=== PATIENT | male | born 1995 | race Caucasian/White ===

== ENCOUNTER 2023-03-24 01:59 | Inpatient (IN) | payer BC, OTHER ==
[~2023-03-24] VITALS: Ht 177.8 cm; Wt 83.7 kg
[2023-03-24 02:52] LABS: BASOPHILS % (AUTO) 0.7 % (0.0-5.0); EOSINOPHILS % (AUTO) 3.7 % (0.0-8.0); HEMATOCRIT 38.3 % (42-54); LYMPHOCYTES % (AUTO) 31.2 % (21.0-51.0); MEAN CORPUSCULAR HEMOGLOBIN 30.4 pg (27.0-33.0); MEAN CORPUSCULAR HGB CONC 33.9 g/dL (32.0-36.0); MEAN CORPUSCULAR VOLUME 89.7 fL (79-99); MONOCYTES % (AUTO) 12.3 % (3.0-13.0); NEUTROPHILS % (AUTO) 51.8 % (40.0-77.0); PLATELET COUNT (AUTO) 478 K/uL (130-400); RED BLOOD CELL COUNT(AUTO) 4.27 MIL/uL (4.50-6.20); RED CELL DISTRIBUTION WIDTH 13.4 % (11.0-15.5); WHITE BLOOD COUNT (AUTO) 9.4 K/uL (4.8-10.8)
[2023-03-24 02:59] LABS: CARBON DIOXIDE 29 mmol/L (21-32); CHLORIDE 102 mmol/L (101-111); CREATININE 0.9 mg/dL (0.5-1.5); GLOMERULAR FILTR. RATE CALC 120 mL/min (>90); GLUCOSE,RANDOM 142 mg/dL (70-105); POTASSIUM 3.6 mmol/L (3.5-5.1); SODIUM SERUM 141 mmol/L (136-145); UREA NITROGEN, BLOOD 11 mg/dL (7-18)
[2023-03-24] MEDS ORDERED: ACETYLCYSTEINE IV ONE ×6 (03:00→08:00)
[2023-03-24] MEDS ORDERED: DEXTROSE 5% IV ONE ×6 (03:00→08:00)
[2023-03-24] MEDS ORDERED: PHARMACY COMMUNICATION MISC SCH ×2 (03:00→17:00)
[2023-03-24] MEDS ORDERED: WATER IV ONE ×6 (03:00→08:00)
[2023-03-24 03:10] LABS: ALANINE AMINOTRANSFERASE 435 U/L (12-78); ALBUMIN 3.7 g/dL (3.5-5.0); ASPARTATE AMINOTRANSFERASE 33 U/L (10-37); CREATINE KINASE, TOTAL 79 U/L (21-232); TOTAL PROTEIN, SERUM 7.5 g/dL (6.0-8.3)
[2023-03-24 03:11] LABS: SALICYLATE < 2.8 mg/dL (2.8-20.0)
[2023-03-24] MEDS ORDERED: ACETYLCYSTEINE 20% 200MG/ML 30ML VIAL ONE ×2 (03:11)
[2023-03-24 03:21] LABS: ACETAMINOPHEN 225 mcg/mL (10-29)
[2023-03-24] MEDS: CHARCOAL/SORBITOL 50 GM/240 ML SUSP PO SCH (03:49)
[2023-03-24 05:37] LABS: AMPHET/METH SCREEN,URINE NEGATIVE (NEGATIVE); BARBITURATE SCREEN, URINE NEGATIVE (NEGATIVE); BENZODIAZEPINES SCREEN,URINE POSITIVE (NEGATIVE); CANNABINOID SCREEN,URINE POSITIVE (NEGATIVE); COCAINE SCREEN,URINE NEGATIVE (NEGATIVE); OPIATE SCREEN,URINE NEGATIVE (NEGATIVE); PHENCYCLIDINE SCREEN,URINE NEGATIVE (NEGATIVE)
[2023-03-24 05:42] LABS: APPEARANCE,URINE CLEAR (CLEAR); BILIRUBIN,URINE NEGATIVE (NEGATIVE); COLOR,URINE YELLOW (YELLOW); GLUCOSE, URINE (UA) 50 mg/dL (NEGATIVE); KETONES,URINE 150 mg/dL (NEGATIVE); LEUKOCYTE ESTERASE ,URINE NEGATIVE Leu/uL (NEGATIVE); NITRATE,URINE NEGATIVE (NEGATIVE); OCCULT BLOOD,URINE NEGATIVE (NEGATIVE); PROTEIN,URINE 20 mg/dL (NEGATIVE); UROBILINOGEN,URINE 0.2 mg/dL (0.2-1.0)
[2023-03-24 08:00] VITALS: BP 115/91
[2023-03-24] MEDS ORDERED: ONDANSETRON 4MG INJ IV PRN (08:00)
[2023-03-24] MEDS ORDERED: ACETAMINOPHEN 325 MG TAB PO PRN ×2 (08:00)
[2023-03-24] MEDS: FAMOTIDINE 20MG VIAL IV SCH ×2 (09:00→19:51)
[2023-03-24 12:20] VITALS: BP 123/84
[2023-03-24] MEDS: LORAZEPAM 2 MG/ML 1 ML VIAL IVP PRN ×2 (12:25→19:51)
[2023-03-24 12:48] LABS: ALBUMIN 3.3 g/dL (3.5-5.0); BILIRUBIN,DIRECT 0.1 mg/dL (0.0-0.3); TOTAL PROTEIN, SERUM 7.2 g/dL (6.0-8.3)
[2023-03-24 15:51] VITALS: BP 128/86
[2023-03-24] MEDS ORDERED: OLAN7.5T2 PO (16:31)
[2023-03-24] MEDS ORDERED: FLUO10CA21 PO (16:31)
[2023-03-24] MEDS ORDERED: BUPR-72 PO (16:31)
[2023-03-24] MEDS ORDERED: GABA-529 PO (16:31)
[2023-03-24] MEDS ORDERED: PAROXETINE HCL 20 MG TABLET PO SCH (17:00)
[2023-03-24] MEDS: PAROXETINE HCL 20 MG TABLET PO SCH (17:25)
[2023-03-24 18:07] LABS: ALBUMIN 3.4 g/dL (3.5-5.0); BILIRUBIN,DIRECT 0.2 mg/dL (0.0-0.3); TOTAL PROTEIN, SERUM 6.6 g/dL (6.0-8.3)
[2023-03-24 20:00] VITALS: BP 122/84
[2023-03-25] VITALS: BP 113/71
[2023-03-25 00:17] LABS: ALANINE AMINOTRANSFERASE 306 U/L (12-78); ALBUMIN 3.2 g/dL (3.5-5.0); ASPARTATE AMINOTRANSFERASE 23 U/L (10-37); BILIRUBIN,DIRECT 0.1 mg/dL (0.0-0.3); TOTAL PROTEIN, SERUM 6.3 g/dL (6.0-8.3)
[2023-03-25 00:33] LABS: ACETAMINOPHEN < 1 mcg/mL (10-29)
[2023-03-25] MEDS: CHARCOAL/SORBITOL 50 GM/240 ML SUSP PO SCH (02:30)
[2023-03-25 04:00] VITALS: BP 127/72
[2023-03-25] MEDS: LORAZEPAM 2 MG/ML 1 ML VIAL IVP PRN ×3 (04:28→15:16)
[2023-03-25 04:29] LABS: BASOPHILS % (AUTO) 1.5 % (0.0-5.0); EOSINOPHILS % (AUTO) 4.4 % (0.0-8.0); HEMATOCRIT 36.1 % (42-54); LYMPHOCYTES % (AUTO) 30.3 % (21.0-51.0); MEAN CORPUSCULAR HEMOGLOBIN 30.3 pg (27.0-33.0); MEAN CORPUSCULAR HGB CONC 33.8 g/dL (32.0-36.0); MEAN CORPUSCULAR VOLUME 89.6 fL (79-99); MONOCYTES % (AUTO) 14.9 % (3.0-13.0); NEUTROPHILS % (AUTO) 48.7 % (40.0-77.0); PLATELET COUNT (AUTO) 412 K/uL (130-400); RED BLOOD CELL COUNT(AUTO) 4.03 MIL/uL (4.50-6.20); RED CELL DISTRIBUTION WIDTH 13.1 % (11.0-15.5); WHITE BLOOD COUNT (AUTO) 5.9 K/uL (4.8-10.8)
[2023-03-25 04:44] LABS: INR 1.1 (0.85-1.15); PROTHROMBIN TIME 11.9 SEC (9.6-11.6)
[2023-03-25 04:46] LABS: PARTIAL THROMBOPLASTIN TIME 27.5 SEC (26.3-35.5)
[2023-03-25 04:51] LABS: ALANINE AMINOTRANSFERASE 314 U/L (12-78); ALBUMIN 3.5 g/dL (3.5-5.0); ASPARTATE AMINOTRANSFERASE 28 U/L (10-37); BILIRUBIN,DIRECT 0.2 mg/dL (0.0-0.3); CARBON DIOXIDE 29 mmol/L (21-32); CHLORIDE 104 mmol/L (101-111); CREATININE 0.8 mg/dL (0.5-1.5); GLOMERULAR FILTR. RATE CALC 124 mL/min (>90); GLUCOSE,RANDOM 90 mg/dL (70-105); SODIUM SERUM 141 mmol/L (136-145); TOTAL PROTEIN, SERUM 6.5 g/dL (6.0-8.3); UREA NITROGEN, BLOOD 9 mg/dL (7-18)
[2023-03-25 04:52] LABS: ACETAMINOPHEN < 1 mcg/mL (10-29); CRP QUANTITATIVE < 2.00 mg/L (0.00-9.0)
[2023-03-25 05:49] LABS: ERYTHROCYTE SEDIMENTATION RATE 15 MM/HR (0-15)
[2023-03-25 08:00] VITALS: BP 115/65
[2023-03-25] MEDS: FAMOTIDINE 20MG VIAL IV SCH (09:24)
[2023-03-25] MEDS: PAROXETINE HCL 20 MG TABLET PO SCH (09:24)
[2023-03-25 11:47] VITALS: BP 130/86
[2023-03-25 16:00] VITALS: BP 132/86
== END 2023-03-25 16:48 | DRG 918 ==
LOC: EDH 01:59 → EDHIP 02:00 → 4BH 12:20
PROVIDERS: ADMIT Hospitalist; ATTEND Hospitalist
DX: T39.1X2A Poisoning by 4-Aminophenol derivatives, intentional self-harm, initial encounter (principal); F13.10 Sedative, hypnotic or anxiolytic abuse, uncomplicated; F31.9 Bipolar disorder, unspecified; F17.210 Nicotine dependence, cigarettes, uncomplicated; Z20.822 Contact with and (suspected) exposure to COVID-19; F41.1 Generalized anxiety disorder; F12.10 Cannabis abuse, uncomplicated; Y92.89 Other specified places as the place of occurrence of the external cause
CPT/HCPCS: 36415; 80048; 80053; 80076; 80305; 81001; 82550; 83036; 85025; 85610; 85651; 85730; 86140; 87635; 99291; C9803; G0378; G0481; J0132; J2060; J3490; J7070; J7608